=== PATIENT | male | born 1990 | race Caucasian/White ===

== ENCOUNTER 2019-11-14 20:17 | Emergency (ER) | payer OTHER ==
--- NOTE | 2019-11-14 21:01 | ER Document Report ---
ED Medical Screen (RME) - General Chief Complaint: Hand Injury Stated Complaint: LEFT HAND INJURY Time Seen by Provider: 11/14/19 20:51 Primary Care Provider: NALLELY TRIPP [Primary Care Provider] - Follow up as needed Mode of Arrival: Ambulatory Information source: Patient Notes: 29-year-old male presented to ED for lacerations to the left hand between the fourth and fifth finger. 1 of them is 1 cm long the other one is a half a centimeter long. Patient states he was walking with a knife and his right hand and it went through his left hand between the fourth and fifth finger. He states he smokes sometimes when somebody has a cigarette but does not buy cigarettes. He states he drinks on the weekends and does not use any illicit drugs. States he has no past medical history except for a fishhook in his head one time. States his last tetanus was in 2012 when he started college. He is alert oriented respirations regular nonlabored speaking in full sentences. I have greeted and performed a rapid initial assessment of this patient. A comprehensive ED assessment and evaluation of the patient, analysis of test results and completion of medical decision making process will be conducted by an additional ED providers. Physical Exam - Vital signs Vitals: Temp Pulse Resp BP Pulse Ox 98.8 F 61 18 164/85 H 99 11/14/19 20:24 11/14/19 20:24 11/14/19 20:24 11/14/19 20:24 11/14/19 20:24 Course - Vital Signs Vital signs: Temp Pulse Resp BP Pulse Ox 98.8 F 61 18 164/85 H 99 11/14/19 20:24 11/14/19 20:24 11/14/19 20:24 11/14/19 20:24 11/14/19 20:24 Doctor's Discharge - Discharge Referrals: NALLELY TRIPP [Primary Care Provider] - Follow up as needed
[2019-11-15] MEDS ORDERED: LIDOCAINE 1% INJ-PF (10 MG/ML) 30 ML SDV INJ ONE (03:26)
[2019-11-15] MEDS ORDERED: DIPH/PERTUSS(ACELL)/TETANUS VAC/PF 0.5 ML SYR (>=10YO) IM ONE (04:32)
--- NOTE | 2019-11-15 04:32 | ER Document Report ---
HPI - HPI Time Seen by Provider: 11/14/19 20:51 Pain Level: Denies Context: Patient is a 29-year-old male who presents emergency department with a chief complaint of laceration to his left hand at the base of his fourth digit. Patient states that the knife hit something and slipped out of his hand and ended up cutting his left hand. Patient is unsure as to when his last tetanus vaccine was. Patient is able to flex and extend all digits. Denies any past medical history. He does not take any medications on a regular basis. - ROS Systems Reviewed and Negative: Yes All other systems reviewed and negative - CONSTITUTIONAL Constitutional: DENIES: Fever, Chills - MUSCULOSKELETAL Musculoskeletal: REPORTS: Extremity pain - Left hand - DERM Skin Color: Normal Skin Problems: Puncture Wound - Left hand Past Medical History - General Information source: Patient - Social History Smoking Status: Current Every Day Smoker Frequency of alcohol use: Social Drug Abuse: None Family History: Reviewed & Not Pertinent Vertical Provider Document - CONSTITUTIONAL Agree With Documented VS: Yes Exam Limitations: No Limitations General Appearance: No Apparent Distress - HEENT HEENT: Atraumatic, Normocephalic, PERRLA - NECK Neck: Normal Inspection - RESPIRATORY Respiratory: No Respiratory Distress - CARDIOVASCULAR Cardiovascular: Regular Rate, Regular Rhythm Pulses: Normal: Radial - MUSCULOSKELETAL/EXTREMETIES Musculoskeletal/Extremeties: FROM - NEURO Level of Consciousness: Awake, Alert, Appropriate Motor/Sensory: No Motor Deficit, No Sensory Deficit - DERM Integumentary: Laceration - Hand; see procedure note Course - Re-evaluation Re-evalutation: 11/15/19 Laceration repaired. Patient tolerated proceedure well. See proceedure note. He is able to move all digits with no difficulty. Follow-up precautions were given. Verbal discharge instructions were given to the patient. They verbalized understanding. They are stable for discharge. Patient expressed gratitude for care. - Vital Signs Vital signs: Temp Pulse Resp BP Pulse Ox 98.2 F 63 18 164/85 H 98 11/15/19 00:38 11/15/19 00:38 11/15/19 00:38 11/15/19 00:38 11/15/19 00:38 Procedures - Laceration/Wound Repair Left Hand Wound length (cm): 1 Wound's Depth, Shape: Superficial Laceration pre-procedure: Sterile PPE donned, Sterile drapes applied, Shur-Clens applied Anesthetic type: 1% Lidocaine Wound explored: Clean, No foreign body removed Wound Repaired With: Sutures Suture Size/Type: 5:0, Prolene Number of Sutures: 2 Post-procedure wound care: Sterile dressing applied Post-procedure NV exam normal: Yes Complications: No Hands back picture: 1 - Laceration Hands front picture: 1 - Laceration Discharge - Discharge Clinical Impression: Puncture wound Condition: Stable Disposition: HOME, SELF-CARE Instructions: Antibiotic Ointment Protection ([facility]), Prophylactic Antibiotic ([facility]), Tetanus Immunization Given ([facility]) Additional Instructions: Please return to your primary doctor, the ED, or an urgent care in 7 days for suture removal. Return immediately if you develop spreading redness around the wound, pus from the wound, worsening pain, or a fever of >100.4. Keep the area clean and dry. Wash gently with soap and water twice daily and cover with antibiotic ointment. Prescriptions: Cephalexin Monohydrate [Keflex 500 mg Capsule] 500 mg PO Q6H 5 Days #20 capsule Forms: Return to Work Referrals: LOCALMD,NO [NO LOCAL MD] - Follow up as needed
[2019-11-15 05:01] VITALS: BP 159/88
== END 2019-11-15 04:53 | disposition home or self-care (01) ==
LOC: ER 20:17
DX: S61.432A Puncture wound without foreign body of left hand, initial encounter (principal); S61.412A Laceration without foreign body of left hand, initial encounter; W26.0XXA Contact with knife, initial encounter; F17.200 Nicotine dependence, unspecified, uncomplicated; Z23 Encounter for immunization
CPT/HCPCS: 99283; 90471; 90715; 12001; J3490